=== PATIENT | female | born 1945 | race Caucasian/White ===

== ENCOUNTER 2018-04-14 05:40 | Emergency (ER) | payer MEDICARE, OTHER ==
[~2018-04-14] VITALS: Ht 165.1 cm; Wt 86.2 kg
--- OUTSIDE RECORDS SUMMARY | ~2018-04-14 | XMS | Encounter Summary ---
Demographics + + + | Address | [address] | | | [place] [address] | + + + | Home Phone | | + + + | Preferred Language | Unknown | + + + | Marital Status | | + + + | Yazdanism Affiliation | Unknown | + + + | Race | Unknown | + + + | Ethnic Group | Unknown | + + + Author + + + | Author | [facility] | | | and [place] | + + + | Organization | [facility] | | | and [place] | + + + | Address | Unknown | + + + | Phone | Unavailable | + + + Support + + + + + | Name | Relationship | Address | Phone | + + + + + | Ajit Anders | ECON | [place] | | | | | [address] | | + + + + + Care Team Providers + +------+ + | Care Manager Corporate Responsibility Name | Role | Phone | + +------+ + | Torey Garcia DO | PCP | | + +------+ + Reason for Visit + + + | Reason | Comments | + + + | Hypertension | | + + + | Hyperlipidemia | 6 month follow up | + + + Encounter Details +--------+---------+ + + + | Date | Type | Department | Care Team | Description | +--------+---------+ + + + | 02/15/ | Office | [facility] | Torey Garcia, | Hypertension, | | 2017 | Visit | [facility] [place] | DO [address] | essential, benign | | | | [address] | [place] | (Primary Dx); | | | | [place] | [phone] | Hyperlipidemia LDL | | | | [address] | | goal < 100; | | | | [phone] | | Osteoporosis, | | | | | | unspecified | | | | | | osteoporosis type, | | | | | | unspecified | | | | | | pathological | | | | | | fracture presence; | | | | | | Peripheral vascular | | | | | | disease (HCC); | | | | | | Atherosclerotic | | | | | | vascular disease, | | | | | | AAA repair in | | | | | | September; Need | | | | | | for hepatitis C | | | | | | screening test | +--------+---------+ + + + Social History + + + +--------+ + | Tobacco Use | Types | Packs/Day | Years | Date | | | | | Used | | + + + +--------+ + | Former Smoker | Cigarettes | 1 | 30 | Quit: 08/04/2011 | + + + +--------+ + + +---+---+---+ | Smokeless Tobacco: | | | | | Never Used | | | | + +---+---+---+ + + | Comments: Started smoking age 19. | + + + + +---------+ + | Alcohol Use | Drinks/We | oz/Week | Comments | | | ek | | | + + +---------+ + | No | | 0.0 | Quit drinking ETOH 2010. Had been a social | | | | | drinker. | + + +---------+ + + + + | Sex Assigned at | Date Recorded | | | | + + + | Not on file | | + + + as of this encounter Last Filed Vital Signs + + + + | Vital Sign | Reading | Time Taken | + + + + | Blood Pressure | 128/86 | 02/15/2018942 PDT | + + + + | Pulse | 91 | 02/15/2018942 PDT | + + + + | Temperature | 35.9 C (96.6 F) | 02/15/2018942 PDT | + + + + | Respiratory Rate | 12 | 02/15/2018942 PDT | + + + + | Oxygen Saturation | 98% | 02/15/2018942 PDT | + + + + | Inhaled Oxygen | - | - | | Concentration | | | + + + + | Weight | 87.5 kg (192 lb 14.4 | 02/15/201843 PDT | | | oz) | | + + + + | Height | - | - | + + + + | Body Mass Index | 32.1 | 02/15/201843 PDT | + + + + in this encounter Instructions Patient Instructions - Sunita Read CMA - 02/15/2018 0945 PDTFollow up in 6 months [facility] fasting labs prior: Lab Hours: Monday-Monday 7 am to 5:30 pm Monday only: 8 am to 4 pm (through Urgent Care) Closed Monday all day Please fast 8-12 hours. Water and black coffee are fine. At above hours You can get blood drawn at [facility] [address] or: [facility] [address] Monday through Monday only in this encounter Progress Notes Torey Garcia DO - 02/15/2018 0945 PDTFormatting of this note may be different from the original. Subjective: Courtney Tolliver is a 72 y.o. female patient of Torey Garcia DO. Chief Complaint: Hypertension and Hyperlipidemia (6 month follow up ) HPI Hypertension: Control and Compliance Medication compliance: good Home Blood Pressures: None Exercise: Limited - only active around her house and yard BP: 128/86 BP Readings from Last 3 Encounters: 02/15/18 128/86 08/09/17 146/72 06/05/17 136/88 Pt denies: No headache, visual symptoms, neurologic problems, syncope No chest pain, palpitations, LOPES, orthopnea, PND, peripheral edema No side effects from any antihypertensive medications HYPERLIPIDEMIA: Patient is compliant with medications. Diet: Low fat, low carb dietary compliance: Yes Denies side effects of medications. Denies Myalgias, abdominal pain, jaundice, constipatio n. No evidence of medication toxicity Denies chest pain, shortness of breath Additional measures started by the patient to reduce lipids include: aerobic exercise : Limited weight reduction: Stable. Lab Results Component Value Date LDL 59 02/15/2018 Osteoporosis Due for Dexa. On prolia. Tolerating it well. PREVENTIVE CARE/PRIOR VISITS 1. Any recommendations from Health Maintenance: No Preventative Services TOPIC LAST DONE NEXT DUE Hepatitis C Screening 1945 Vaccine: Influenza 04/06/2017 Breast Cancer Screening (Mamm Q2 Years 50-74) 08/09/2017 08/09/2019 Vaccine: Dtap/Tdap/Td 04/06/2017 04/06/2027 Vaccine: Pneumococcal 65+ High/Highest Risk 11/26/2014 2. Any immunizations necessary: No Immunization History Administered Date(s) Administered INFLUENZA 65 Y OR >, TRIVALENT HIGH-DOSE 09/12/2012, 04/26/2015 INFLUENZA PF 18 Y OR >,TRIVALENT RECOMBINANT 05/20/2014, 04/06/2017 INFLUENZA QUADR W/PRES (PED/ADOL/ADULT) MULTIDOSE 06/04/2016 PNEUMOCOCCAL CONJUGATE 13-VALENT (PCV13) 11/26/2014 PNEUMOCOCCAL POLYSACCHARIDE 23-VALENT (PPSV23) 09/12/2013 TDAP, (ADOL/ADULT) 04/06/2017 ZOSTER, 1 DOSE (ADULT) 04/18/2013 none indicated 3. Has patient been involved in medical events/hospitalizations since their last visit: No No Known Allergies Medications: She has a current medication list which includes the following prescription(s): atorvastati n, clopidogrel, cyanocobalamin, ergocalciferol, and lisinopril. Past Medical History She has a past medical history of Anemia of chronic disease (07/08/2014); Anemia of chronic disease (05/29/2013); Arthritis; Cancer of anorectum (HCC) (2002); Cataract; Chronic kidney d isease; H/O acute renal failure; Heartburn (12/19/2013); Hyperlipidemia; Hypertension; and Os teoporosis (02/22/2015). Past Surgical History She has a past surgical history that includes Abdominal aortic aneurysm repair (2011); Laura ract Removal (Bilateral, 2011); Cosmetic surgery (07/16); fracture surgery (09/15); ovarian c yst removal (Right); Colonoscopy (2007); arthrodesis; Appendectomy (1974); Eye surgery (04/15 ); and joint replacement (Femur 09/15). Family History: Her family history includes Heart disease in her maternal grandfather; High blood pressure in her mother; Ovarian cancer in her mother. Social History: Social History Social History Marital status: Spouse name: N/A Number of children: 1 Years of education: 14 Occupational History retired Social History Main Topics Smoking status: Former Smoker Packs/day: 1.00 Years: 30.00 Types: Cigarettes Quit date: 08/04/2011 Smokeless tobacco: Never Used Comment: Started smoking age 19. Alcohol use No Comment: Quit drinking ETOH 2010. Had been a social drinker. Drug use: No Sexual activity: No Other Topics Concern None Social History Narrative None Review of Systems Constitutional: Negative for fatigue. Respiratory: Negative for chest tightness and shortness of breath. Cardiovascular: Negative for chest pain. Gastrointestinal: Negative for abdominal pain. Neurological: Negative for dizziness and headaches. Objective: Vitals: 02/15/18 0943 BP: 128/86 Pulse: 91 Resp: 12 Temp: 35.9 C (96.6 F) TempSrc: Temporal SpO2: 98% Weight: 87.5 kg (192 lb 14.4 oz) Physical Exam Constitutional: She is oriented to person, place, and time. She appears well-developed and well-nourished. No distress. HENT: Head: Normocephalic and atraumatic. Eyes: Conjunctivae are normal. Right eye exhibits no discharge. Left eye exhibits no discha rge. Neck: Neck supple. No JVD present. Cardiovascular: Normal rate, regular rhythm and normal heart sounds. No murmur heard. Pulmonary/Chest: Effort normal and breath sounds normal. No respiratory distress. She has n o wheezes. She has no rales. Lymphadenopathy: She has no cervical adenopathy. Neurological: She is alert and oriented to person, place, and time. Skin: Skin is warm and dry. She is not diaphoretic. Psychiatric: She has a normal mood and affect. Her behavior is normal. Nursing note and vitals reviewed. Ortho Exam Results for orders placed or performed in visit on 06/05/17 LINDA Screen, Qual, Reflex Result Value Ref Range LINDA Screen, Qual See Comments NEG DNA Double-Stranded Ab, IgG Result Value Ref Range dsDNA Autoantibody <1 <5 IU/mL Cyclic Citrullinated Peptide Ab, IgG Result Value Ref Range Cyclic Citrullin Peptide Ab <5 <19.9 CU Rheumatoid Factor, Quant Result Value Ref Range RHEUMATOID FACTOR <20 <20 IU/mL Phospholipid Ab Panel, IgA, IgG, IgM Result Value Ref Range Cardiolipin AB IgM 2 0 - 20 CU Cardiolipin AB IgG <3 0 - 20 CU Anticardiolipin IgA 5 0 - 20 CU Assessment and Plans: 1. Hypertension, essential, benign Comprehensive Metabolic Panel 2. Hyperlipidemia LDL goal < 100 Lipid Panel 3. Osteoporosis, unspecified osteoporosis type, unspecified pathological fracture presence DEXA Bone Density wo Vert Fx Assmt denosumab (PROLIA) 60 mg/mL injection 60 mg DISCONTINUED: denosumab (PROLIA) 60 mg/mL injection 4. Peripheral vascular disease (HCC) 5. Atherosclerotic vascular disease, AAA repair in September 6. Need for hepatitis C screening test Hepatitis C Ab 1. Hypertension, essential, benign -. Blood pressure stable and goals discussed -. Continue current medications - Advised low salt diet - Advised regular cardiovascular exercise -. Labs reviewed and discussed with the patient - Follow up as needed if blood pressures are above goal - Comprehensive Metabolic Panel; Future 2. Hyperlipidemia LDL goal < 100 -. Take meds as directed, Please inform us of any side effects or problems with your medic ations -. Discussed regular cardiovascular exercise and maintaining healthy wt. -. Avoid high fat/cholesterol diet -. Lipid panel and LFT's reviewed. and f/u labs ordered - Lipid Panel; Future 3. Osteopenia, unspecified location Stable. Continue Prolia and will order another DEXA. - denosumab (PROLIA) 60 mg/mL injection; Inject 1 mL under the skin Every 6 months. Dispen se: 1 mL; Refill: 0 Return in about 6 months (around 08/17/2018) for HTN/Lipid medication review. Care instructions and warning signs were discussed. Medications per orders. Side effects discussed. Labs and investigations per orders. I Sunita Read, am acting as a scribe on behalf of, and in the presence of Sunil Esqueda Electronically signed by: Sunita Read CMA 02/15/2018 . 9:36 I have reviewed and edited this note: Torey Garcia DO 02/15/18 I, Torey Garcia DO , personally performed the services described in this documentation, as described by Sunita Read in my presence and it is both accurate and complete. Emilia mccarthy signed by Torey Garcia DO on 02/15/2018 at 23:46 This note is dictated using [employer] voice recognition software. This note was dictated but not proofread. It may contain some grammatical errors. in this encounter Plan of Treatment +--------+---------+ + + + | Date | Type | Specialty | Care Team | Description | +--------+---------+ + + + | 08/20/ | Office | Family Medicine | Torey Garcia, | | | 2017 | Visit | | DO [address] | | | | | | [place] | | | | | | [id number] | | | | | | | | +--------+---------+ + + + + +--------+ + + | Name | Priori | Associated Diagnoses | Order Schedule | | | ty | | | + +--------+ + + | Comprehensive Metabolic Panel | Routin | Hypertension, | Expected: 08/14/2018 | | | e | essential, benign | (Approximate), | | | | | Expires: 02/15/2019 | + +--------+ + + | Lipid Panel | Routin | Hyperlipidemia LDL | Expected: 08/14/2018 | | | e | goal < 100 | (Approximate), | | | | | Expires: 02/15/2019 | + +--------+ + + | Hepatitis C Ab | Routin | Need for hepatitis | Expected: 02/15/2018 | | | e | C screening test | (Approximate), | | | | | Expires: 02/16/2019 | + +--------+ + + as of this encounter Results DEXA Bone Density andres Reddy Fx Assmt (03/14/2018 1430) + + + | Narrative | Performed At | + + + | DEXA BONE DENSITY STUDY [employer] VINNYT RICK ASSESSMENT 03/14/2018 2:11 PM | [facility] | | HISTORY: Osteopenia. COMPARISON: 11/10/2015 PROTOCOL: Bone | | | mineral density was calculated with dual absorption x-ray technique. | | | FINDINGS: Bone mineral density for the left femoral neck is 0.683 | | | g/cm2, corresponding to a T score of -1.5 and a Z score of 0.4. | | | Bone mineral density for the lumbar spine measured from L1 to L4 is | | | 0.911 g/cm2, corresponding to a T score of -1.2 and a Z score of 1.0. | | | IMPRESSION - LEFT FEMORAL NECK: Fracture risk: Increased; WHO | | | classification: Osteopenia, improved since prior examination. | | | L1-L4 REGION OF THE LUMBAR SPINE: Fracture risk: Increased; WHO | | | classification: Osteopenia, improved since prior examination. World | | | Health Organization Classification | | | Normal: T score at or above -1 SD | | | Osteopenia: T score between -1 and -2.5 SD | | | Osteoporosis: T score at or below -2.5 SD Dictated | | | and Signed by: Bradley Lawrence MD Electronically signed: 03/14/2018 | | | 3:08 PM | | + + + + + | Procedure Note | + + | Raji, Rad Results In - 03/14/2018 1511 PDT DEXA BONE DENSITY STUDY WO VERT FX | | ASSESSMENT 03/14/2018 2:11 PMHISTORY: Osteopenia.COMPARISON: 11/10/2015PROTOCOL: Bone | | mineral density was calculated with dual absorption x-raytechnique.FINDINGS:Bone mineral | | density for the left femoral neck is 0.683 g/cm2, corresponding toa T score of -1.5 and | | a Z score of 0.4.Bone mineral density for the lumbar spine measured from L1 to L4 is | | 0.911 g/cm2,corresponding to a T score of -1.2 and a Z score of 1.0.IMPRESSION -LEFT | | FEMORAL NECK: Fracture risk: Increased; WHO classification: Osteopenia,improved since | | prior examination.L1-L4 REGION OF THE LUMBAR SPINE: Fracture risk: Increased; WHO | | classification:Osteopenia, improved since prior examination. World Health | | OrganizationClassificationNormal: T score at or above -1 SDOsteopenia: | | T score between -1 and -2.5 SDOsteoporosis: T score at or below -2.5 | | SDDictated and Signed by: Bradley Lawrence MD Electronically signed: 03/14/2018 3:08 PM | | | |Bone mineral density for the lumbar spine measured from L1 to L4 is 0.911 g/cm2, | |corresponding to a T score of -1.2 and a Z score of 1.0. | | | |IMPRESSION - | |LEFT FEMORAL NECK: Fracture risk: Increased; WHO classification: Osteopenia, | |improved since prior examination. | | | |L1-L4 REGION OF THE LUMBAR SPINE: Fracture risk: Increased; WHO classification: | |Osteopenia, improved since prior examination. World Health Organization | |Classification | |Normal: T score at or above -1 SD | |Osteopenia: T score between -1 and -2.5 SD | |Osteoporosis: T score at or below -2.5 SD | | | |Dictated and Signed by: Bradley Lawrence MD | | Electronically signed: 03/14/2018 3:08 PM | + + + +---------+ + + | Performing | Address | City/State/Zipcode | Phone Number | | Organization | | | | + +---------+ + + | [facility] | | | | + +---------+ + + in this encounter Visit Diagnoses + + | Diagnosis | + + | Hypertension, essential, benign - Primary | + + | Essential hypertension, benign | + + | Hyperlipidemia LDL goal < 100 | + + | Other and unspecified hyperlipidemia | + + | Osteoporosis, unspecified osteoporosis type, unspecified pathological fracture presence | + + | Peripheral vascular disease (HCC) | + + | Peripheral vascular disease, unspecified | + + | Atherosclerotic vascular disease, AAA repair in [place] of 12 | + + | Generalized and unspecified atherosclerosis | + + | Need for hepatitis C screening test | + + | Special screening examination for other specified viral diseases | + + Administered Medications + +--------+ +-------+------+ + | Medication Order | MAR | Action | Dose | Rate | Site | | | Action | Date | | | | + +--------+ +-------+------+ + | denosumab (PROLIA) 60 mg/mL | Given | | 60 mg | | Arm-Left | | injection 60 mg 60 mg, | | 8 16:05 | | | Upper | | Subcutaneous, ONCE, [facility] 02/15/18 | | PDT | | | | | at 1515, For 1 dose, Keep in | | | | | | | refrigerator. Allow to attain | | | | | | | room temperature prior to use. | | | | | | + +--------+ +-------+------+ + +---+---+ | | | +---+---+ in this encounter"
--- OUTSIDE RECORDS SUMMARY | ~2018-04-14 | XMS | Encounter Summary ---
Demographics + + + | Address | [address] | | | [place] [address] | + + + | Home Phone | | + + + | Preferred Language | Unknown | + + + | Marital Status | | + + + | Alevism Affiliation | Unknown | + + + | Race | Unknown | + + + | Ethnic Group | Unknown | + + + Author + + + | Author | [facility] | | | and [place] | + + + | Organization | [facility] | | | and [place] | + + + | Address | Unknown | + + + | Phone | Unavailable | + + + Support + + + + + | Name | Relationship | Address | Phone | + + + + + | Ajit Anders | ECON | [place] | | | | | [address] | | + + + + + Care Team Providers + +------+ + | Care Note Keeper Name | Role | Phone | + +------+ + | Torey Garcia DO | PCP | | + +------+ + Encounter Details +--------+ + + + + | Date | Type | Department | Care Team | Description | +--------+ + + + + | 03/14/ | Hospital | [facility] | [place], | Osteoporosis, | | 2018 | Encounter | [facility] | DO [address] | unspecified | | | | [address] | [place] | osteoporosis type, | | | | [place], [place] | [address] | unspecified | | | | [address] | | pathological | | | | [phone] | | fracture presence | +--------+ + + + + Social History + + [...] + + + as of this encounter Medications at Time of Discharge + + +---------+---------+ + + | Medication | Sig. | Disp. | Refills | Start | End Date | | | | | | Date | | + + +---------+---------+ + + | atorvaSTATin | Take 0.5 tablets by | 45 | 3 | 09/14/19 | | | (LIPITOR) 40 mg | mouth nightly. | tablet | | 18 | | | tablet | | | | | | + + +---------+---------+ + + | clopidogrel | take 1 tablet by | 90 | 3 | 08/24/20 | | | (PLAVIX) 75 mg | mouth once daily | tablet | | 17 | | | tablet | | | | | | + + +---------+---------+ + + | cyanocobalamin | Take 1 tablet by | 30 | 0 | 08/26/20 | | | (VITAMIN B-12) 1000 | mouth Daily. | tablet | | 15 | | | MCG tablet | | | | | | + + +---------+---------+ + + | ergocalciferol | take 1 capsule by | 4 | 12 | 08/24/20 | | | (VITAMIN D-2) 50,000 | mouth every 14 days | capsule | | 17 | | | units capsule | | | | | | + + +---------+---------+ + + | lisinopril | take 1 tablet by | 90 | 0 | 01/09/20 | | | (PRINIVIL, ZESTRIL) | mouth NIGHTLY FOR | tablet | | 18 | 8 | | 10 mg tablet | HIGH BLOOD PRESSURE | | | | | | | AND BLOOD VESSEL | | | | | | | PROTECTION | | | | | + + +---------+---------+ + + as of this encounter Plan of Treatment +--------+---------+ + + + | Date | Type | Specialty | Care Team | Description | +--------+---------+ + + + | 08/20/ | Office | Family Medicine | Torey Garcia, | | | 2017 | Visit | | DO [address] | | | | | | [place] | | | | | | [phone] | | | | | | | | +--------+---------+ + + + as of this encounter Procedures + +--------+ + + + | Procedure Name | Priori | Date/Time | Associated Diagnosis | Comments | | | ty | | | | + +--------+ + + + | DEXA BONE DENSITY | Routin | 03/14/2018 | Osteoporosis, | Results for this | | STUDY ANDRES GORDILLO FX | e | 1430 PDT | unspecified | procedure are in the | | ASSESSMENT | | | osteoporosis type, | results section. | | | | | unspecified | | | | | | pathological | | | | | | fracture presence | | + +--------+ + + + in this encounter Results DEXA Bone Density andres Wolf Assmt (03/14/2018 1430) + + + | Narrative | Performed At | + + + | DEXA BONE DENSITY STUDY WO RAND WOLF ASSESSMENT 03/14/2018 2:11 PM | [facility] [...] | Procedure Note | + + | Ang [place]leg[place] Results In - 03/14/2018 1511 PDT DEXA [...] + | Diagnosis | + + | Osteoporosis, unspecified osteoporosis type, unspecified pathological fracture presence | + +"
--- OUTSIDE RECORDS SUMMARY | ~2018-04-14 | XMS | Encounter Summary ---
Demographics + + + | Address | [address] | | | [place] [address] | + + + | Home Phone | | + + + | Preferred Language | Unknown | + + + | Marital Status | | + + + | Jain Affiliation | Unknown | + + + | Race | Unknown | + + + | Ethnic Group | Unknown | + + + Author + + + | Author | [facility] | | | and [place] | + + + | Organization | [facility] | | | and [place] | + + + | Address | Unknown | + + + | Phone | Unavailable | + + + Support + + + + + | Name | Relationship | Address | Phone | + + + + + | Ajit Anders | ECON | [place] | | | | | [address] | | + + + + + Care Team Providers + +------+ + | Care Price Accuracy Supervisor Name | Role | Phone | + [...] + + | 02/15/ | Office | [facility] | Torey Garcia, | Hypertension, | | 2017 | Visit | [facility] | DO [address] | essential, benign | | | | [address] | [place] | (Primary Dx); | | | | [place] | [phone] | Hyperlipidemia LDL | | | | [phone] | | goal < 100; | | | | [phone] | | Osteoporosis, | | | | [...] 02/15/2018 0945 PDTFollow up in 6 months [facility] fasting labs prior: Lab Hours: Monday-Monday 7 am to 5:30 pm Monday only: 8 am to 4 pm (through Urgent Care) Closed Monday all day Please fast 8-12 hours. Water and black coffee are fine. At above hours You can get blood drawn at [facility] [address] or: [facility] [address] Monday through Monday only in [...] at 23:46 This note is dictated using [employer] voice recognition software. This note was dictated [...] [place] | | | | | | [phone] | | | | | | | [...] + + | DEXA BONE DENSITY STUDY [employer] VINNYT RICK ASSESSMENT 03/14/2018 2:11 PM | [...] | | Upper | | Subcutaneous, ONCE, [facility] 02/15/18 | | PDT | | | [...]
--- OUTSIDE RECORDS SUMMARY | ~2018-04-14 | XMS | Encounter Summary ---
Demographics + + + | Address | [address] | | | [place] [address] | + + + | Home Phone | | + + + | Preferred Language | Unknown | + + + | Marital Status | | + + + | Catholic Affiliation | Unknown | + + + | Race | Unknown | + + + | Ethnic Group | Unknown | + + + Author + + + | Author | [facility] | | | and [place] | + + + | Organization | [facility] | | | and [place] | + + + | Address | Unknown | + + + | Phone | Unavailable | + + + Support + + + + + | Name | Relationship | Address | Phone | + + + + + | Ajit Anders | ECON | [place] | | | | | [address] | | + + + + + Care Team Providers + +------+ + | Care Director Long Term Care Name | Role | Phone | + +------+ + | Torey Garcia DO | PCP | | + +------+ + Reason for Visit + + + | Reason | Comments | + + + | Medication Refill | | + + + Encounter Details +--------+--------+ + + + | Date | Type | Department | Care Team | Description | +--------+--------+ + + + | 04/10/ | Refill | [facility] | Torey Garcia, | Medication Refill | | 2017 | | MEDICINE [place] | DO [address] | | | | | [address] | [place] | | | | | [place] | [address] | | | | | [address] | | | | | | [phone] | | | +--------+--------+ + + + Social History + + [...] + + + as of this encounter Plan of Treatment +--------+---------+ + + + | Date | Type | Specialty | Care Team | Description | +--------+---------+ + + + | 08/20/ | Office | Family Medicine | Torey Garcia, | | | 2017 | Visit | | DO [address] | | | | | | [place] | | | | | | [address] | | | | | | | | +--------+---------+ + + + as of this encounter Visit Diagnoses Not on filein this encounter"
--- OUTSIDE RECORDS SUMMARY | ~2018-04-14 | XMS | Encounter Summary ---
Demographics + + + | Address | [address] | | | [place] [address] | + + + | Home Phone | | + + + | Preferred Language | Unknown | + + + | Marital Status | | + + + | Scientologist Affiliation | Unknown | + + + | Race | Unknown | + + + | Ethnic Group | Unknown | + + + Author + + + | Author | [facility] | | | and [place] | + + + | Organization | [facility] | | | and [place] | + + + | Address | Unknown | + + + | Phone | Unavailable | + + + Support + + + + + | Name | Relationship | Address | Phone | + + + + + | Ajit Anders | ECON | [place] | | | | | [address] | | + + + + + Care Team Providers + +------+ + | Care Sql Dba Name | Role | Phone | + [...] Description | +--------+--------+ + + + | 04/09/ | Refill | [facility] | Torey Garcia, | Medication Refill | | 2017 | | MEDICINE [place] | DO [address] | | | | | [address] | [place] | | | | | [place] | [address] | | | | | [address] | | | | | | [phone] | | | +--------+--------+ + + + [...]
--- OUTSIDE RECORDS SUMMARY | ~2018-04-14 | XMS | Encounter Summary ---
Demographics + + + | Address | [address] | | | [place] [address] | + + + | Home Phone | | + + + | Preferred Language | Unknown | + + + | Marital Status | | + + + | Anglican Affiliation | Unknown | + + + | Race | Unknown | + + + | Ethnic Group | Unknown | + + + Author + + + | Author | [facility] | | | and [place] | + + + | Organization | [facility] | | | and [place] | + + + | Address | Unknown | + + + | Phone | Unavailable | + + + Support + + + + + | Name | Relationship | Address | Phone | + + + + + | Ajit Anders | ECON | [place] | | | | | [address] | | + + + + + Care Team Providers + +------+ + | Care Planer Chain Offbearer Name | Role | Phone | + +------+ + | Torey Garcia DO | PCP | | + +------+ + Reason for Visit + + + | Reason | Comments | + + + | Results, Imaging | DEXA scan results | + + + Encounter Details +--------+ + + + + | Date | Type | Department | Care Team | Description | +--------+ + + + + | 03/21/ | Telephone | [facility] | Torey Garcia, | Results, Imaging | | 2018 | | MEDICINE [place] | DO [address] | (DEXA scan results) | | | | [address] | [place] | | | | | [place], [place] | [address] | | | | | [address] | | | | | | [phone] | | | +--------+ + + + + Social [...] 08/20/ | Office | Family Medicine | Troey Garcia, | | | 2017 | Visit | | DO [address] | | | | | | [place] | | | | | | [address] | | | | | | | | +--------+---------+ + + + as of this encounter Visit Diagnoses Not on filein this encounter"
--- OUTSIDE RECORDS SUMMARY | ~2018-04-14 | XMS | Encounter Summary ---
Demographics + + + | Address | [address] | | | [place] [address] | + + + | Home Phone | | + + + | Preferred Language | Unknown | + + + | Marital Status | | + + + | Jew Affiliation | Unknown | + + + | Race | Unknown | + + + | Ethnic Group | Unknown | + + + Author + + + | Author | [facility] | | | and [place] | + + + | Organization | [facility] | | | and [place] | + + + | Address | Unknown | + + + | Phone | Unavailable | + + + Support + + + + + | Name | Relationship | Address | Phone | + + + + + | Ajit Anders | ECON | [place] | | | | | [address] | | + + + + + Care Team Providers + +------+ + | Care Dairy Supplies Sales Representative Name | Role | Phone | + +------+ + | Torey Garcia DO | PCP | | + +------+ + Reason for Visit +---------+ + | Reason | Comments | +---------+ + | Results | | +---------+ + Encounter Details +--------+ + + + + | Date | Type | Department | Care Team | Description | +--------+ + + + + | 02/15/ | Telephone | [facility] [place] [facility] | Torey Garcia, | Results | | 2018 | | MEDICINE [place] | DO [address] | | | | | [address] | [place] | | | | | [place], [place] | [address] | | | | | [address] | | | | | | [phone] | | | +--------+ + + + [...] [place] | | | | | | [address] | | | | | | | | +--------+---------+ + + + + +--------+ + + | Name | Priori | Associated Diagnoses | Order Schedule | | | ty | | | + +--------+ + + | Comprehensive Metabolic Panel | Routin | Hyperlipidemia, | Expected: 05/16/2018 | | | e | unspecified | (Approximate), | | | | hyperlipidemia type | Expires: 02/15/2019 | + +--------+ + + | Hemoglobin A1C | Routin | Impaired fasting | Expected: 05/16/2018 | | | e | glucose | (Approximate), | | | | | Expires: 02/15/2019 | + +--------+ + + | Lipid Panel | Routin | Hyperlipidemia, | Expected: 05/16/2018 | | | e | unspecified | (Approximate), | | | | hyperlipidemia type | Expires: 02/15/2019 | + +--------+ + + as of this encounter Visit Diagnoses + + | Diagnosis | + + | Impaired fasting glucose - Primary | + + | Hyperlipidemia, unspecified hyperlipidemia type | + +"
--- OUTSIDE RECORDS SUMMARY | ~2018-04-14 | XMS | Clinical Summary ---
Demographics + + + | Address | [address] | | | [place] [address] | + + + | Home Phone | | + + + | Preferred Language | Unknown | + + + | Marital Status | | + + + | Bahai Affiliation | Unknown | + + + | Race | Unknown | + + + | Ethnic Group | Unknown | + + + Author + + + | Author | [facility] | | | and [place] | + + + | Organization | [facility] | | | and [place] | + + + | Address | Unknown | + + + | Phone | Unavailable | + + + Support + + + + + | Name | Relationship | Address | Phone | + + + + + | Ajit Anders | ECON | [place] | | | | | [address] | | + + + + + Care Team Providers + +------+ + | Care Parts Expediter Name | Role | Phone | + +------+ + | Torey Garcia DO | PP | | + +------+ + Allergies No Known Allergies Current Medications + + +---------+---------+------+------+-------+ | Prescription | Sig. | Disp. | Refills | Star | End | Statu | | | | | | t | Date | s | | | | | | Date | | | + + +---------+---------+------+------+-------+ | cyanocobalamin | Take 1 tablet by | 30 | 0 | 12/2 | | Activ | | (VITAMIN B-12) 1000 | mouth Daily. | tablet | | 3/20 | | e | | MCG tablet | | | | 15 | | | + + +---------+---------+------+------+-------+ | clopidogrel | take 1 tablet by | 90 | 3 | 12/2 | | Activ | | (PLAVIX) 75 mg | mouth once daily | tablet | | 1/20 | | e | | tablet | | | | 17 | | | + + +---------+---------+------+------+-------+ | ergocalciferol | take 1 capsule by | 4 | 12 | 12/2 | | Activ | | (VITAMIN D-2) 50,000 | mouth every 14 days | capsule | | 1/20 | | e | | units capsule | | | | 17 | | | + + +---------+---------+------+------+-------+ | atorvaSTATin | Take 0.5 tablets by | 45 | 3 | 01/1 | | Activ | | (LIPITOR) 40 mg | mouth nightly. | tablet | | 1/20 | | e | | tablet | | | | 18 | | | + + +---------+---------+------+------+-------+ | lisinopril | take 1 tablet by | 90 | 1 | 08/0 | | Activ | | (PRINIVIL, ZESTRIL) | mouth NIGHTLY FOR | tablet | | 7/20 | | e | | 10 mg tablet | HIGH BLOOD PRESSURE | | | 18 | | | | | AND BLOOD VESSEL | | | | | | | | PROTECTION | | | | | | + + +---------+---------+------+------+-------+ | lisinopril | take 1 tablet by | 90 | 0 | 05/0 | 08/0 | Disco | | (PRINIVIL, ZESTRIL) | mouth NIGHTLY FOR | tablet | | 7/20 | 7/20 | ntinu | | 10 mg tablet | HIGH BLOOD PRESSURE | | | 18 | 18 | ed | | | AND BLOOD VESSEL | | | | | | | | PROTECTION | | | | | | + + +---------+---------+------+------+-------+ Active Problems + + + | Problem | Noted Date | + + + | Chronic low back pain | 06/09/2015 | + + + + + | Overview: Lower lumbar facet arthritis. Bilateral L4 and L5 | | radiculopathy | + + + + + | Medicare annual wellness visit, initial | 06/09/2015 | + + + | Asymptomatic carotid artery narrowing without infarction, | 06/09/2015 | | bilateral | | + + + | Stage III chronic kidney disease | 06/09/2015 | + + + | Osteoporosis | 02/22/2015 | + + + + + | Overview: On Prolia since December 2013. | | Plan follow-up DEXA exam in December 2015. | + + + + + | Anemia of chronic disease | 07/08/2014 | + + + | Postmenopausal vaginal bleeding | 05/24/2014 | + + + + + | Overview: Secondary to atrophic vaginitis in conjunction with | | radiation induced telangiectasias. Improved with topical | | estrogen. | + + + + + | Hyperuricemia | 04/07/2014 | + + + | Peripheral vascular disease (HCC) | 12/19/2013 | + + + | Osteopenia | 05/30/2013 | + + + + + | Overview: Based on DEXA performed on May 24, 2013. | + + + + + | Vitamin D deficiency disease | 05/30/2013 | + + + | Inflammatory polyarthritis (HCC) | 05/29/2013 | + + + + + | Overview: Migratory objective joint inflammation associated | | with an ESR of 110. Negative LINDA, RA and CCP titers. | + + + + + | Stenosis of left carotid artery | 05/29/2013 | + + + + + | Overview: May 2013 with CDE revealing 70% left ICA | | lesion. CTA of neck with 70% left ICA stenosis, 50% right ICA | | stenosis. 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 She also had repair of the left | | iliac artery issue. This required 4 units of PRBCs transfusion. | | She follows up with V[facility] surgery at [facility] | + + + + + | Pathological fracture of right femur, | 09/09/2011 | + + + + + | Overview: This was a nontraumatic fracture. The etiology of | | what is suspected to be a pathologic fracture is currently | | unclear. There is no history known of osteoporosis evaluation. | + + + +---+ | H/O acute renal failure | | + +---+ + + | Overview: Occurred approximately at age 31 associated with | | "influenza" This required four runs of hemodialysis then | | resolved. | + + + +---+ | Cancer of anorectum (HCC) | | + +---+ + + | Overview: Treated with radiation and chemotherapy with 5 | | years of surveillance released as cancer free 5 years | | ago.Colonoscopy performed by Dr. Haley in [facility] on | | 05/03/2004 revealed: Mild radiation proctitis, no evidence of | | recurrent anal carcinoma and diminutive polypsx3 in the | | rectosigmoid. Pathology revealed hyperplastic polyps and | | radiation changes. A followup colonoscopy was recommended in 3-5 | | years | + + Resolved Problems + + + + | Problem | Noted | Resolved | | | Date | Date | + + + + | Ischiogluteal bursitis | 12/20/19 | | | | 14 | 4 | + + + + | Heartburn | 12/20/19 | | | | 14 | 4 | + + + + | Great toe pain | 12/20/19 | | | | 14 | 4 | + + + + | Anemia of chronic disease | 05/29/20 | | | | 13 | 4 | + + + + | Anal carcinoma, diagnosis in 2002, treated with combination | 05/10/20 | | | radiation and chemotherapy. | 03 | 8 | + + + + + + | Overview: She was followed annually for a period of 5 years. | | She believes to be cancer free since 2007. | + + Encounters +--------+ + + + + | Date | Type | Specialty | Care Team | Description | +--------+ + + + + | 04/10/ | Refill | | Torey Garcia, | Medication Refill | | 2017 | | | DO | | +--------+ + + + + | 04/09/ | Refill | | Torey Garcia, | Medication Refill | | 2017 | | | DO | | +--------+ + + + + | 03/21/ | Telephone | | Torey Garcia, | Results, Imaging | | 2018 | | | DO | (DEXA scan results) | +--------+ + + + + | 03/14/ | Hospital | | Torey Garcia, | Osteoporosis, | | 2018 | Encounter | | DO | unspecified | | | | | | osteoporosis type, | | | | | | unspecified | | | | | | pathological | | | | | | fracture presence | +--------+ + + + + | 02/15/ | Office | | Torey Garcia, | Hypertension, | | 2018 | Visit | | DO | essential, benign | | | | | | (Primary Dx); | | | | | | Hyperlipidemia LDL | | | | | | goal < 100; | | | | | | Osteoporosis, | | | | [...] | | | | screening test | +--------+ + + + + | 02/15/ | Telephone | | Torey Garcia, | Results | | 2017 | | | DO | | +--------+ + + + + from Last 3 Months Immunizations + + + + | Name | Dates Previously Given | Next Due | + + + + | INFLUENZA 66 Y OR >, | 04/26/2015, 09/12/2012 | | | TRIVALENT HIGH-DOSE | | | + + + + | INFLUENZA PF 19 Y OR | 04/06/2017, 05/20/2014 | | | >,TRIVALENT | | | | RECOMBINANT | | | + + + + | INFLUENZA QUADR | 06/04/2016 | | | W/PRES | | | | (PED/ADOL/ADULT) | | | | MULTIDOSE | | | + + + + | PNEUMOCOCCAL | 11/26/2014 | | | CONJUGATE 13-VALENT | | | | (PCV13) | | | + + + + | PNEUMOCOCCAL | 09/12/2013 | | | POLYSACCHARIDE | | | | 23-VALENT (PPSV23) | | | + + + + | TDAP, (ADOL/ADULT) | 04/06/2017 | | + + + + | ZOSTER, 1 DOSE | 04/18/2013 | | | (ADULT) | | | + + + + Family History + + +------+ + | Medical History | Relation | Name | Comments | + + +------+ + | Heart disease | Maternal | | | | | Grandfath | | | | | er | | | + + +------+ + | High blood pressure | Mother | | | + + +------+ + | Ovarian cancer | Mother | | | + + +------+ + + +------+ + + | Relation | Name | Status | Comments | + +------+ + + | Father | | | | + +------+ + + | Maternal Grandfather | | | | + +------+ + + | Mother | | | | + +------+ + + Social History + + + [...] on file | | + + + Last Filed Vital Signs + + + [...] | 87.5 kg (192 lb 14.4 | 02/15/2018942 PDT | | | oz) | | + + + + | Height | 165.1 cm (5' 5") | 02/22/2016917 PDT | + + + + | Body Mass Index | 32.1 | 02/15/2018942 PDT | + + + + Plan of Treatment +--------+---------+ + + + | Date | Type | Specialty | Care Team | Description | +--------+---------+ + + + | 08/20/ | Office | | Torey Garcia, | | | 2017 | Visit | | DO [address] | | | | | | [place] | | | | | | [address] | | | | | | | | +--------+---------+ + + + + + + + + | Health Maintenance | Due Date | Last Done | Comments | + + + + + | Lung Cancer | | | | | Screening | 2 | | | + + + + + | Vaccine: Influenza | | 04/06/2017, 06/04/2016, | | | (#1) | 8 | 04/26/2015, Additional history | | | | | exists | | + + + + + | BREAST CANCER | | 08/09/2017, 07/12/2016, | | | SCREENING (MAMM Q2 | 9 | 06/29/2015, Additional history | | | YEARS 50-74) | | exists | | + + + + + | Vaccine: | | 04/06/2017 | | | Dtap/Tdap/Td (2 - | 7 | | | | Td) | | | | + + + + + | Vaccine: | Completed | 11/26/2014, 09/12/2013 | | | Pneumococcal 65+ | | | | | High/Highest Risk | | | | + + + + + | Hepatitis C | Completed | 02/15/2018 | | | Screening | | | | + + + + + Procedures + +--------+ + + + | Procedure Name | Priori | Date/Time | Associated Diagnosis | Comments | | | ty | | | | + +--------+ + + + | DEXA BONE DENSITY | Routin | 03/14/2018 | Osteoporosis, | Results for this | | STUDY WO RAND FX | e | 1430 PDT | unspecified | procedure are in the | | ASSESSMENT | | | osteoporosis type, | results section. | | | | | unspecified | | | | | | pathological | | | | | | fracture presence | | + +--------+ + + + | HEPATITIS C AB | Routin | 02/15/2018 | Need for hepatitis | Results for this | | | e | 1026 PDT | C screening test | procedure are in the | | | | | | results section. | + +--------+ + + + | LIPID PANEL | Routin | 02/15/2018 | Hypertension, | Results for this | | | e | 1026 PDT | essential, benign | procedure are in the | | | | | Hyperlipidemia LDL | results section. | | | | | goal < 100 | | + +--------+ + + + | COMPREHENSIVE | Routin | 02/15/2018 | Hypertension, | Results for this | | METABOLIC PANEL | e | 1026 PDT | essential, benign | procedure are in the | | | | | Hyperlipidemia LDL | results section. | | | | | goal < 100 | | + +--------+ + + + from Last 3 Months Results DEXA Bone Density wo Vert Fx Assmt (03/14/2018 1430) + + + | Narrative | Performed At | + + + | DEXA BONE DENSITY STUDY WO VERT FX ASSESSMENT 03/14/2018 2:11 PM | [facility] [...] | | | + +---------+ + + Lipid Panel (02/15/2018 1026) + + + + + | Component | Value | Ref Range | Performed At | + + + + + | Triglycerides | 373 (H) | 35 - 160 mg/dL | [facility] | | | | | [facility] | | | [facility] - | | | | | LAB[facility]ATORY | + + + + + | Cholesterol | 167 | 150 - 200 mg/dL | [facility] | | | | | [facility] | | | | | [facility] - | | | | | LABORATORY | + + + + + | HDL | 33Comment: New HDL | 28 - 83 mg/dL | [facility] | | | Reference Range as of | | [facility] | | | May 14, 2015 | | CENTER - | | | Values may be 10-20% | | LABORATORY | | | lower with new, | | | | | standardized method. | | | + + + + + | Chol/HDL Ratio | 5.1 | | [facility] | | | | | [facility] | | | | [facility] - | | | | | LABORATORY | + + + + + | LDL, Calculated | 59 | <=130 mg/dL | [facility] | | | | | [facility] | | | | | CENTER - | | | | | LABORATORY | + + + + + + + | Specimen | + + | Blood | + + + + + + + | Performing | Address | City/State/Zipcode | Phone Number | | Organization | | | | + + + + + | [facility] | [address] | [place] | [phone] | | [facility] | | [address] | | | - LABORATORY | | | | + + + + + | [facility] | [address] | [place] | | | [facility] | | [address] | | | - LABORATORY | | | | + + + + + Hepatitis C Ab (02/15/2018 1026) + + + + + | Component | Value | Ref Range | Performed At | + + + + + | Hepatitis C Ab | <0.1Comment: | 0.0 - 0.9 s/co ratio | [facility] | | | | | [facility] | | | | | | | | Nega | | | | | tive: < | | | | | 0.8 | | | | | | | | | | | | | | | Indeterminate: 0.8 - | | | | | 0.9 | | | | | | | | | | P | | | | | ositive: > 0.9 | | | | | The [facility] recommends that | | | | | a positive HCV antibody | | | | | result be followed up | | | | | with a HCV Nucleic Acid | | | | | Amplification test | | | | | ([id number]). | | | + + + + + + + | Specimen | + + | Blood | + + + + + | Narrative | Performed At | + + + | Performed at: - [facility] [id number], | [facility] | | [place], [place] [id number] Imaging Clerk: Alonso Infante MD, | [facility] | | Phone: [phone] | | + + + + + + + + | Performing | Address | City/State/Zipcode | Phone Number | | Organization | | | | + + + + + | [facility] | [address] | [place] [address] | [phone] | | [facility] | [address] | | | + + + + + Comprehensive Metabolic Panel (02/15/2018 1026) + + + + + | Component | Value | Ref Range | Performed At | + + + + + | NA | 137 | 136 - 149 mmol/L | [facility] | | | | | [facility] | | | | | [facility] - | | | | | LABORATORY | + + + + + | K | 4.9 | 3.5 - 5.1 mmol/L | [facility] | | | | | [facility] | | | | | [facility] - | | | | | LABORATORY | + + + + + | CL | 105 | 98 - 109 mmol/L | [facility] | | | | | [facility] | | | | | [facility] - | | | | | LABORATORY | + + + + + | CO2 | 23 (L) | 24 - 31 mmol/L | [facility] | | | | | [facility] | | | | | [facility] - | | | | | LABORATORY | + + + + + | ANION GAP | 9 | 3 - 16 mmol/L | [facility] | | | | | [facility] | | | | | [facility] - | | | | | LABORATORY | + + + + + | GLUCOSE | 111 (H) | 70 - 109 mg/dL | [facility] | | | | | [facility] | | | | | CENTER - | | | | | LABORATORY | + + + + + | BUN | 37 (H) | 7 - 18 mg/dL | [facility] | | | | | [facility] | | | | | [facility] - | | | | | LABORATORY | + + + + + | Creatinine, | 1.34 (H) | 0.60 - 1.30 mg/dL | [facility] | | Serum/Plasma | | | [facility] | | | | | CENTER - | | | | | LABORATORY | + + + + + | eGFR if not | 39 (L)Comment: | >=60 mL/min/1.73m2 | [facility] | | [facility] | GLOMERULAR FILTRATION | | [facility] | | | RATE,ESTIMATED mL/min | | CENTER - | | | /1.00d9Kzzp than 60 | | LABORATORY | | | Chronic kidney | | | | | disease,if found over a | | | | | 3-month period.Less than | | | | | 15 Kidney | | | | | failureFor | | | | | Americans,multiply the | | | | | calculated GFR by 1.21. | | | | | | | | + + + + + | CALCIUM | 10.3 | 8.3 - 10.5 mg/dL | [facility] | | | | | [facility] | | | | | CENTER - | | | | | LABORATORY | + + + + + | ALBUMIN | 4.3 | 3.2 - 5.0 g/dL | [facility] | | | | | [facility] | | | | | CENTER - | | | | | LABORATORY | + + + + + | Bilirubin Total | 0.6 | 0.1 - 1.5 mg/dL | [facility] | | | | | [facility] | | | | | [facility] - | | | | | LAB[facility]ATORY | + + + + + | Total protein | 8.1 (H) | 6.0 - 7.8 g/dL | [facility] | | | | | [facility] | | | | | [facility] - | | | | | LABORATORY | + + + + + | AST | 17 | 10 - 42 U/L | [facility] | | | | | [facility] | | | | | [facility] - | | | | | LABORATORY | + + + + + | ALT | 16 | 6 - 45 U/L | [facility] | | | | | [facility] | | | | | [facility] - | | | | | LABORATORY | + + + + + | ALK PHOS | 78 | 40 - 110 U/L | [facility] | | | | | [facility] | | | | | [facility] - | | | | | LABORATORY | + + + + + | GLOBULIN | 3.8 | 2.1 - 3.8 g/dL | [facility] | | | | | [facility] | | | | | [facility] - | | | | | LABORATORY | + + + + + | Albumin/Globulin | 1.1 | 0.8 - 2.0 | [facility] | | ratio | | | [facility] | | | | | [facility] - | | | | | LABORATORY | + + + + + | BUN/CREA | 27.6 | | [facility] | | | | | [facility] | | | | | [facility] - | | | | | LABORATORY | + + + + + + + | Specimen | + + | Blood | + + + + + + + | Performing | Address | City/State/Zipcode | Phone Number | | Organization | | | | + + + + + | [facility] | [address] | [place], [place] | [phone] | | [facility] | | [address] | | | - LABORATORY | | | | + + + + + | [facility] | [address] | [place] | | | [facility] | | [address] | | | - LABORATORY | | | | + + + + + from Last 3 Months Insurance + +--------+ +--------+ +---------+ | Payer | Benefi | Subscriber | Type | Phone | Address | | | t Plan | ID | | | | | | / | | | | | | | Group | | | | | + +--------+ +--------+ +---------+ | MEDICARE | MEDICA | [id number] | Medica | [phone] | | | | RE | | re | [phone] | | | | PART A | | | | | | | AND B | | | | | + +--------+ +--------+ +---------+ | [employer] | [employer] | [id number] | Indemn | [phone] | | | OF | | ity | 1000 | | | | [place] | | | | | | | MDCR | | | | | | | SUPPL | | | | | + +--------+ +--------+ +---------+ + +--------+ +--------+ + + | Guarantor Name | Accoun | Relation to | Date | Phone | Billing Address | | | t Type | Patient | of | | | | | | | | | | + +--------+ +--------+ + + | LILA TOLLIVER | Person | Self [birth year] Home: | [address] | | | al/Fam | | [phone] | [phone] | [address] | | | [place] | | | [phone] | [place] [address] | + +--------+ +--------+ + +
--- OUTSIDE RECORDS SUMMARY | ~2018-04-14 | XMS | Encounter Summary ---
Demographics + + + | Address | [address] | | | [place] [address] | + + + | Home Phone | | + + + | Preferred Language | Unknown | + + + | Marital Status | | + + + | Synagogue Affiliation | Unknown | + + + | Race | Unknown | + + + | Ethnic Group | Unknown | + + + Author + + + | Author | [facility] | | | and [place] | + + + | Organization | [facility] | | | and [place] | + + + | Address | Unknown | + + + | Phone | Unavailable | + + + Support + + + + + | Name | Relationship | Address | Phone | + + + + + | Ajit Anders | ECON | [place] | | | | | [address] | | + + + + + Care Team Providers + +------+ + | Care Fitness Services Manager Name | Role | Phone | + +------+ + | oTrey Garcia DO | PCP | | + +------+ + Reason for Visit +---------+ + | Reason | Comments | +---------+ + | Results | | +---------+ + Encounter Details +--------+ + + + + | Date | Type | Department | Care Team | Description | +--------+ + + + + | 02/15/ | Telephone | [facility] | Torey Garcia, | Results | | 2018 | | [facility] | DO [address] | | | | | [address] | [place] | | | | | [place], [place] | [address] | | | | | [address] | | | | | | [phone] | | | +--------+ + + + [...] [place] | | | | | | [address] | | | | | | | [...]
--- OUTSIDE RECORDS SUMMARY | ~2018-04-14 | XMS | Clinical Summary ---
Demographics + + + | Address | [address] | | | [place] [address] | + + + | Home Phone | | + + + | Preferred Language | Unknown | + + + | Marital Status | Single | + + + | Hindu Affiliation | NON | + + + | Race | White | + + + | Ethnic Group | Not or | + + + Author + + + | Author | [facility] | + + + | Organization | [facility] | + + + | Address | Unknown | + + + | Phone | Unavailable | + + + Support + + +---------+ + | Name | Relationship | Address | Phone | + + +---------+ + | KELLY BEAN | ECON | Unknown | | + + +---------+ + Care Team Providers + +------+ + | Care Group Director Name | Role | Phone | + +------+ + | Justino Campoverde MD | PP | | + +------+ + Source Comments [id number] Allergies No Known Allergies Current Medications + + +-------+---------+------+------+-------+ | Prescription | Sig. | Disp. | Refills | Star | End | Statu | | | | | | t | Date | s | | | | | | Date | | | + + +-------+---------+------+------+-------+ | lisinopril 10 mg | Take 10 mg by mouth | | | | | Activ | | oral tablet | once daily. | | | | | e | + + +-------+---------+------+------+-------+ | clopidogrel 75 mg | Take 75 mg by mouth | | | | | Activ | | oral tablet | once daily. | | | | | e | + + +-------+---------+------+------+-------+ | atorvastatin 40 mg | Take 40 mg by mouth | | | | | Activ | | oral tablet | once daily. | | | | | e | + + +-------+---------+------+------+-------+ | ergocalciferol | Take 50,000 Units by | | | | | Activ | | 50,000 unit oral | mouth every seven | | | | | e | | capsule | days. | | | | | | + + +-------+---------+------+------+-------+ | cyanocobalamin | Take 1,000 mcg by | | | | | Activ | | 1,000 mcg oral | mouth once daily. | | | | | e | | tablet | | | | | | | + + +-------+---------+------+------+-------+ Active Problems + + + | Problem | Noted Date | + + + | Chronic venous insufficiency | 01/09/2018 | + + + | Iliac artery stenosis, left (HCC) | 10/10/2011 | + + + | Abdominal aortic aneurysm (HCC) | 10/03/2011 | + + + + + | Overview: ICD10 | + + + + + | BMI 30.0-30.9,adult | 10/03/2011 | + + + | Hypertension, well controlled | 10/03/2011 | + + + | Hip fracture (HCC) | 09/21/2011 | + + + Family History + + +------+ + | Medical History | Relation | Name | Comments | + + +------+ + | Heart Attack | Grandfath | | | | | er | | | + + +------+ + | Cancer | Mother | | ovarian | + + +------+ + + +------+ + + | Relation | Name | Status | Comments | + +------+ + + | Father | | Alive | currently 98 yo | + +------+ + + | Grandfather | | | | + +------+ + + | Mother | | | ovarian cancer | + +------+ + + Social History + + + +--------+ + | Tobacco Use | Types | Packs/Day | Years | Date | | | | | Used | | + + + +--------+ + | Former Smoker | Cigarettes | 0.5 | 30 | Quit: 09/18/2011 | + + + +--------+ + + +---+---+---+ | Smokeless Tobacco: | | | | | Never Used | | | | + +---+---+---+ + + | Tobacco Cessation: Counseling Given: Yes | + + + + +---------+ + | Alcohol Use | Drinks/We | oz/Week | Comments | | | ek | | | + + +---------+ + | No | | | Used to drink beer but hasnt since | | | | | May 2011 | + + +---------+ + + + + | Sex Assigned at | Date Recorded | | | | + + + | Not on file | | + + + Last Filed Vital Signs + + + + | Vital Sign | Reading | Time Taken | + + + + | Blood Pressure | 131/57 | 01/01/2018 11:02 AM PDT | + + + + | Pulse | 95 | 01/01/2018 11:02 AM PDT | + + + + | Temperature | 36.4 C (97.6 F) | 03/28/2016 12:53 PM PDT | + + + + | Respiratory Rate | 16 | 10/19/2011 2:06 PM PST | + + + + | Oxygen Saturation | 96% | 01/01/2018 11:02 AM PDT | + + + + | Inhaled Oxygen | - | - | | Concentration | | | + + + + | Weight | 86.2 kg (190 lb) | 01/01/2018 11:02 AM PDT | + + + + | Height | 166.4 cm (5' 5.5") | 03/28/2016 12:53 PM PDT | + + + + | Body Mass Index | 31.14 | 01/01/2018 11:02 AM PDT | + + + + Plan of Treatment +--------+ + + + + | Date | Type | Specialty | Care Team | Description | +--------+ + + + + | 07/16/ | Appointment | | Antony Cameron, | | | 2017 | | | MD [address] | | | | | | [address] | | | | | | [place], [place] | | | | | | [address] | | | | | | [phone] | | | | | | | | +--------+ + + + + | 07/16/ | Appointment | | Antony Cameron, | | | 2017 | | | MD [address] | | | | | | [address] | | | | | | [place], [place] | | | | | | [address] | | | | | | [phone] | | | | | | | | +--------+ + + + + | 07/16/ | Appointment | | Antony Cameron, | | | 2017 | | | MD [address] | | | | | | [address] | | | | | | [place], [place] | | | | | | [address] | | | | | | [phone] | | | | | | | | +--------+ + + + + | 07/16/ | Office | | Antony Cameron, | | | 2018 | Visit | | [address] | | | | | | [address] | | | | | | [place], [place] | | | | | | [address] | | | | | | [phone] | | | | | | | | +--------+ + + + + | 07/16/ | Appointment | | Antony Cameron, | | | 2018 | | | MD [address] | | | | | | [address] | | | | | | [facility] [place] | | | | | | [address] | | | | | | [phone] | | | | | | | | +--------+ + + + + + + + + + | Health Maintenance | Due Date | Last Done | Comments | + + + + + | INFLUENZA VACCINE | | 04/06/2017, 04/26/2015, | | | (FLU SHOT) | 8 | 05/20/2014, Additional history | | | | | exists | | + + + + + Implants + +------+--------+ +--------+--------+--------+ | Implanted | Type | Area | Manufacture | Device | Expira | Model | | | | | r | | tion | / | | | | | | Identi | Date | Serial | | | | | | fier | | / Lot | + +------+--------+ +--------+--------+--------+ | Graft Ultramax Knitted Poly | | N/A: | | | 06/01/ | | | 18 X 30 - | | Abdome | | | 2014 | /()0 | | [id number]: | | n | | | | [id number] | | Qty: 1 on 10/04/2011 by | | | | | | [id number] | | Antony Cameron MD | | | | | | 3 | | | | | | | | /[id number] | | | | | | | | [id number] | | | | | | | | 01 | + +------+--------+ +--------+--------+--------+ | Graft Ultramax Knitted Poly | | | [facility] | | 12/02/ | [id number] | | 08 X 60 - [id number]: | | | MEDICAL | | 2015 | / | | Qty: 1 on 10/04/2011 by | | | | | | /[id number] | | Antony Cameron MD | | | | | | [id number] | | | | | | | | 06 | + +------+--------+ +--------+--------+--------+ Results Not on filefrom Last 3 Months Insurance + +--------+ +--------+ + + | Payer | Benefi | Subscriber | Type | Phone | Address | | | t Plan | ID | | | | | | / | | | | | | | Group | | | | | + +--------+ +--------+ + + | MEDICARE | MEDICA | xxxxxxxxxxx | Medica | [phone] [address] | | | RE A & | | re | [phone] | [place] [address] | | | B | | | | | + +--------+ +--------+ + + | COMMERCIAL | INDIVI | [id number] | Indemn | | | | INDIVIDUAL | DUAL | | ity | | | | | COMMER | | | | | | | CIAL | | | | | + +--------+ +--------+ + + + +--------+ +--------+ + + | Guarantor Name | Accoun | Relation to | Date | Phone | Billing Address | | | t Type | Patient | of | | | | | | | | | | + +--------+ +--------+ + + | COURTNEY TOLLIVER | Person | Self | [birth year] | Home: | [address] | | | al/Fam | | 1946 | [phone] | [place] [address] | | | [place]ia | | | [phone] | | + +--------+ +--------+ + +
--- OUTSIDE RECORDS SUMMARY | ~2018-04-14 | XMS | Encounter Summary ---
Demographics + + + | Address | [address] | | | [place] [address] | + + + | Home Phone | | + + + | Preferred Language | Unknown | + + + | Marital Status | | + + + | Alevism Affiliation | Unknown | + + + | Race | Unknown | + + + | Ethnic Group | Unknown | + + + Author + + + | Author | [facility] | | | and [place] | + + + | Organization | [facility] | | | and [place] | + + + | Address | Unknown | + + + | Phone | Unavailable | + + + Support + + + + + | Name | Relationship | Address | Phone | + + + + + | Ajit Anders | ECON | [place] | | | | | [address] | | + + + + + Care Team Providers + +------+ + | Care Advertiser Name | Role | Phone | + [...] Imaging | | 2018 | | MEDIC[facility] | DO [address] | (DEXA scan results) | | | | [address] | [place] | | | | | [place], [place] | [address] | | | | | [address] | | | | | | [phone] | | | +--------+ + + + [...]
--- OUTSIDE RECORDS SUMMARY | ~2018-04-14 | XMS | Encounter Summary ---
Demographics + + + | Address | [address] | | | [place] [address] | + + + | Home Phone | | + + + | Preferred Language | Unknown | + + + | Marital Status | | + + + | Caodaism Affiliation | Unknown | + + + | Race | Unknown | + + + | Ethnic Group | Unknown | + + + Author + + + | Author | [facility] | | | and [place] | + + + | Organization | [facility] | | | and [place] | + + + | Address | Unknown | + + + | Phone | Unavailable | + + + Support + + + + + | Name | Relationship | Address | Phone | + + + + + | Ajit Anders | ECON | [place] | | | | | [address] | | + + + + + Care Team Providers + +------+ + | Care Petroleum Blending Plant Operator Name | Role | Phone | + +------+ + | Torey Garcia DO | PCP | | + +------+ + Encounter Details +--------+ + + + + | Date | Type | Department | Care Team | Description | +--------+ + + + + | 03/14/ | Hospital | [facility] | JoseTorey, | Osteoporosis, | | 2018 | Encounter | MED [facility] | DO [address] | unspecified | | | | [address] | [place] | osteoporosis type, | | | | [place], [place] | [address] | unspecified | | | | [address] | | pathological | | | | [phone] | | fracture presence | +--------+ + [...] [place] | | | | | | [id number] | | | | | | | [...]
--- OUTSIDE RECORDS SUMMARY | ~2018-04-14 | XMS | Clinical Summary ---
Demographics + + + | Address | [address] | | | [place] [address] | + + + | Home Phone | | + + + | Preferred Language | Unknown | + + + | Marital Status | Single | + + + | Restorationism Affiliation | NON | + + + [...] Team Providers + +------+ + | Care Tank Officer Name | Role | Phone | + +------+ + | Justino Campoverde MD | PP | | + +------+ + Source Comments [facility] fully [facility] and [facility] Allergies No Known Allergies Current Medications + [...] [address] | | | | | | [place], [place] | | | | | | [address] | | | | | | [phone] | | | | | | | | +--------+ + + + + | 07/16/ | Appointment | | Antony Cameron, | | | 2017 | | | MD [address] | | | | | | [address] | | | | | | [place], [place] | | | | | | [address] | | | | | | [phone] | | | | | | | | +--------+ + + + + | 07/16/ | Appointment | | Antony Cameron, | | | 2017 | | | MD [address] | | | | | | [address] | | | | | | [place], [place] | | | | | | [address] | | | | | | [phone] | | | | | | | | +--------+ + + + + | 07/16/ | Office | | Antony Cameron, | | | 2018 | Visit | | [address] | | | | | | [address] | | | | | | [place], [place] | | | | | | [address] | | | | | | [phone] | | | | | | | | +--------+ + + + + | 07/16/ | Appointment | | Antony Cameron, | | | 2018 | | | MD [address] | | | | | | [address] | | | | | | [facility] [place] | | | | | | [address] | | | | | | [phone] | | | | | | | [...] | | 2014 | /()0 | | [id number]: | | n | | | | [id number] | | Qty: 1 on 10/04/2011 by | | | | | | [id number] | | Antony Cameron MD | | | | | | 3 | | | | | | | | /[id number] | | | | | | | | [id number] | | | | | | | | 01 | + +------+--------+ +--------+--------+--------+ | Graft Ultramax Knitted Poly | | | [facility] | | 12/02/ | [id number] | | 08 X 60 - [id number]: | | | MEDICAL | | 2015 | / | | Qty: 1 on 10/04/2011 by | | | | | | /[id number] | | Antony Cameron MD | | | | | | [id number] | | | | | | | [...] | re | [phone] | [place] [address] | | | B | | | [...] | 1946 | [phone] | [place] [address] | | | [place] | | | [phone] | | + +--------+ +--------+ + +
--- OUTSIDE RECORDS SUMMARY | ~2018-04-14 | XMS | Clinical Summary ---
Demographics + + + | Address | [address] | | | [place] [address] | + + + | Home Phone | | + + + | Preferred Language | Unknown | + + + | Marital Status | | + + + | Latter-Day Affiliation | Unknown | + + + | Race | Unknown | + + + | Ethnic Group | Unknown | + + + Author + + + | Author | [facility] | | | and [place] | + + + | Organization | [facility] | | | and [place] | + + + | Address | Unknown | + + + | Phone | Unavailable | + + + Support + + + + + | Name | Relationship | Address | Phone | + + + + + | Ajit Anders | ECON | [place] | | | | | [address] | | + + + + + Care Team Providers + +------+ + | Care Mount Loader Name | Role | Phone | + [...] + + + | 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 Haley in [facility] on | | 05/03/2004 revealed: Mild radiation [...] [place] | | | | | | [address] | | | | | | | [...] 167 | 150 - 200 mg/dL | [facility] | | | | | [facility] | | | | | C[facility] - | | | | | LABORATORY | + + + + + | HDL | 33Comment: New HDL | 28 - 83 mg/dL | [facility] | | | Reference Range as of | | [facility] | | | May 14, 2015 | [...] Calculated | 59 | <=130 mg/dL | [facility] | | | | | [facility] | | | | | CENTER - | | | | | LABORATORY | + + + + + + + | Specimen | + + | Blood | + + + + + + + | Performing | Address | City/State/Zipcode | Phone Number | | Organization | | | | + + + + + | [facility] | [address] | [place] | [phone] | | [facility] | | [address] | | | - LABORATORY | | | | + + + + + | [facility] | [address] | [place] | | | [facility] | | [address] | | | - LABORATORY | | [...] | | | The [facility] recommends that | | | | | a positive HCV antibody | | | | | result be followed up | | | | | with a HCV Nucleic Acid | | | | | Amplification test | | | | | ([id number]). | | | + + + + + + + | Specimen | + + | Blood | + + + + + | Narrative | Performed At | + + + | Performed at: - [facility] [address], | REFERENCE LAB | | [place], [place] [id number] Ironworker Apprentice Shop: Alonso Infante MD, | [facility] | | Phone: [phone] | | + + + + + + + + | Performing | Address | City/State/Zipcode | Phone Number | | Organization | | | | + + + + + | REFERENCE LAB | [address] | [place] [address] | [phone] | | [facility] | Drive [...] [facility] | | | | | [facility] | | | | | CENTER [...] >=60 mL/min/1.73m2 | [facility] | | [facility] | GLOMERULAR FILTRATION | | [facility] | | | RATE,ESTIMATED mL/min | | CENTER - | | | /1.74h1Slsr than 60 | | LABORATORY | | [...] [facility] | | | | | [facility] | | | | | CENTER - | | | | | LABORATORY | + + + + + | ALBUMIN | 4.3 | 3.2 - 5.0 g/dL | [facility] | | | | | [facility] | | | | | [...] + | [facility] | [address] | [place], [place] | [phone] | | [facility] | | [address] | | | - LABORATORY | | | | + + + + + | [facility] | [address] | [place] | | | [facility] | | [address] | | | - LABORATORY | | [...] +--------+ +---------+ | MEDICARE | MEDICA | [id number] | Medica | [phone] | | | RE | | re | [phone] | | | | PART A | | | | | | | AND B | | | | | + +--------+ +--------+ +---------+ | [employer] [place] [employer] [place] | UNITED | [id number] | Indemn | [phone] | | | OF | | ity | 1000 | | | | [place] [employer] [place] | | | | | | | [...] | | al/Fam | | 1946 | [phone] | [address] | | | [place] | | | [phone] | [place] [address] | + +--------+ +--------+ + +
--- OUTSIDE RECORDS SUMMARY | ~2018-04-14 | XMS | Encounter Summary ---
Demographics + + + | Address | [address] | | | [place] [address] | + + + | Home Phone | | + + + | Preferred Language | Unknown | + + + | Marital Status | | + + + | Lutheran Affiliation | Unknown | + + + | Race | Unknown | + + + | Ethnic Group | Unknown | + + + Author + + + | Author | [facility] | | | and [place] | + + + | Organization | [facility] | | | and [place] | + + + | Address | Unknown | + + + | Phone | Unavailable | + + + Support + + + + + | Name | Relationship | Address | Phone | + + + + + | Ajit Anders | ECON | [place] | | | | | [address] | | + + + + + Care Team Providers + +------+ + | Care Central Supply Supervisor Name | Role | Phone | [...] + | 04/09/ | Refill | [facility] | Torey Garcia, | Medication Refill | | 2017 | | [facility] [place] | DO [address] | | | | | [address] | [place] | | | | | [place] | [address] | | | | | [address] | | | | | | [phone] | | | +--------+--------+ + + + [...]
--- OUTSIDE RECORDS SUMMARY | ~2018-04-14 | XMS | Encounter Summary ---
Demographics + + + | Address | [address] | | | [place] [address] | + + + | Home Phone | | + + + | Preferred Language | Unknown | + + + | Marital Status | | + + + | Yazidism Affiliation | Unknown | + + + | Race | Unknown | + + + | Ethnic Group | Unknown | + + + Author + + + | Author | [facility] | | | and [place] | + + + | Organization | [facility] | | | and [place] | + + + | Address | Unknown | + + + | Phone | Unavailable | + + + Support + + + + + | Name | Relationship | Address | Phone | + + + + + | Ajit Anders | ECON | [place] | | | | | [address] | | + + + + + Care Team Providers + +------+ + | Care Matlab Developer Name | Role | Phone | + [...] + | 04/10/ | Refill | [facility] | Torey Garcia, | Medication Refill | | 2017 | | MEDICINE [place] | DO [address] | | | | | [address] | [place] | | | | | [place] | [address] | | | | | [address] | | | | | | [phone] | | | +--------+--------+ + + + [...]
[~2018-04-14 05:40] MED LIST: AMLODIPINE BESY10 MG PO; AZITHROMYCIN250 MG PO; IBUPROFEN400 MG PO; NORCO 5-325 TA1 EACH PO
--- NOTE | 2018-04-14 19:47 | EKG ---
[facility] [address] [facility] [place] [address] Signed Sinus tachycardia Low voltage QRS Marked ST abnormality, possible lateral subendocardial injury Abnormal ECG No previous ECGs available Confirmed by MIKE CHASE MD ([id number]) on 04/14/2018 7:47:20 PM Electronically Signed By: MIKE CHASE MD 04/14/18 194 PATIENT NAME: LILA HILL Electrocardiogram DATE OF : 47 PHYSICIAN: MIKE CHASE MD REPORT #: [id number] REPORT IS CONFIDENTIAL AND NOT TO BE RELEASED WITHOUT AUTHORIZATION
--- NOTE | 2018-04-14 19:48 | EKG ---
[facility] [address] [facility] [place] [address] Signed Normal sinus rhythm Low voltage QRS Marked ST abnormality, possible lateral subendocardial injury Abnormal ECG When compared with ECG of 14-APR-2018 05:45, (Unconfirmed) No significant change was found Confirmed by MIKE CHASE MD ([id number]) on 04/14/2018 7:47:27 PM Electronically Signed By: MIKE CHASE MD 04/14/18 1948 PATIENT NAME: LILA HILL Electrocardiogram DATE OF : 47 PHYSICIAN: MIKE CHASE MD REPORT #: [id number] REPORT IS CONFIDENTIAL AND NOT TO BE RELEASED WITHOUT AUTHORIZATION
== END 2018-04-14 08:00 | disposition short-term general hospital (02) ==
LOC: ED 05:40
DX: I21.4 Non-ST elevation (NSTEMI) myocardial infarction (principal); I11.0 Hypertensive heart disease with heart failure; I50.9 Heart failure, unspecified; I95.9 Hypotension, unspecified; Z79.899 Other long term (current) drug therapy
CPT/HCPCS: 36600; 71045; 80053; 82803; 83735; 83880; 84484; 85025; 85379; 93005; 93010; 94660; 96361; 96365; 96375; 99291; J1644; J2405; J7030